=== PATIENT | male | born 1950 | race Caucasian/White ===

== ENCOUNTER 2018-03-28 23:18 | Emergency (ER) | payer MEDICARE, OTHER ==
[~2018-03-28] VITALS: Ht 175.3 cm; Wt 90.9 kg
[2018-03-28] MEDS ORDERED: ketorolac trometh inj. 60 MG/2 ML VIAL IM ONE (23:55)
[2018-03-28] MEDS ORDERED: diazepam 5mg tablet PO ONE (23:55)
[2018-03-28] MEDS ORDERED: epiNEPHrine inj 0.3 MG in BUPIVAcaine 0.5% inj/PF 29.7 ML SQ ONE (23:55)
[2018-03-29] MEDS ORDERED: EPINEPHRINE SQ ONE (00:15)
[2018-03-29] MEDS ORDERED: BUPIVACAINE 0.5% SQ ONE (00:15)
[2018-03-29] MEDS ORDERED: epiNEPHrine 1 mg/ml inj IM ONE (00:20)
[2018-03-29] MEDS ORDERED: BUPIVAcaine/PF 7.5mg/ml (0.75%) 10ml vial IJ ONE (00:20)
[2018-03-29 00:29] VITALS: BP 122/79
[2018-03-29] MEDS ORDERED: VAL5T PO (00:29)
[2018-03-29] MEDS ORDERED: IBUP-1984 PO (00:29)
[2018-03-29] MEDS ORDERED: ACET-3067 PO (00:29)
== END 2018-03-29 01:05 | disposition home or self-care (01) ==
LOC: ER 23:19
DX: S13.8XXA Sprain of joints and ligaments of other parts of neck, initial encounter (principal); M43.6 Torticollis; I25.10 Atherosclerotic heart disease of native coronary artery without angina pectoris; I10 Essential (primary) hypertension; J45.909 Unspecified asthma, uncomplicated; Z98.62 Peripheral vascular angioplasty status; Z79.899 Other long term (current) drug therapy; X50.1XXA Overexertion from prolonged static or awkward postures, initial encounter; Y93.89 Activity, other specified; Y92.89 Other specified places as the place of occurrence of the external cause; Y99.8 Other external cause status
CPT/HCPCS: 20552; 96372; 99284; J1885

== ENCOUNTER 2018-12-09 07:30 | Inpatient (IN) | payer MEDICARE, OTHER ==
[~2018-12-09] VITALS: Ht 175.3 cm; Wt 99.4 kg
[2018-12-28] MEDS ORDERED: LOSA1TAB39 PO (11:53)
[2018-12-28] MEDS ORDERED: GABA-532 PO (11:53)
[2018-12-28] MEDS ORDERED: ACET-2615 PO (11:53)
[2018-12-28] MEDS ORDERED: MELO-102 PO (11:53)
[2018-12-28 12:14] LABS: BASOPHILS # (AUTO) 0.1 X10'3 (0-0.2); BASOPHILS % (AUTO) 0.7 % (0-1); EOSINOPHILS # (AUTO) 0.2 X10'3 (0-0.9); EOSINOPHILS % (AUTO) 3.2 % (0-6); LYMPHOCYTES % (AUTO) 25.4 % (21-51); MEAN CORPUSCULAR HEMOGLOBIN 32.6 PG (27.0-31.0); MEAN CORPUSCULAR HGB CONC 33.7 g/dL (33.0-36.5); MEAN CORPUSCULAR VOLUME 96.6 FL (78-98); MEAN PLATELET VOLUME 7.1 FL (7.4-10.4); MONOCYTES # (AUTO) 0.6 X10'3 (0-0.9); MONOCYTES % (AUTO) 7.3 % (2-12); NEUTROPHILS # (AUTO) 4.9 X10'3 (1.8-7.7); NEUTROPHILS % (AUTO) 63.4 % (42-75); PRE OP HEMATOCRIT 48.3 % (42.0-52.0); PRE OP HEMOGLOBIN 16.3 g/dL (14.0-17.9); PRE OP PLATELET COUNT 230 X10'3 (140-440); RED CELL DISTRIBUTION WIDTH 13.1 % (11.5-14.5)
[2018-12-28 12:25] LABS: PRE OP PROTIME 9.7 SECONDS (9.0-12.0)
[2018-12-28 12:28] LABS: ALBUMIN 3.9 G/DL (3.4-5.0); ALKALINE PHOSPHATASE 77 IU/L (46-116); BLOOD UREA NITROGEN 18 MG/DL (7-18); BUN/CREATININE RATIO 21.7 (5.4-32.0); CALCIUM 9.2 MG/DL (8.5-10.1); CHLORIDE 102 MMOL/L (99-107); CREATININE 0.83 MG/DL (0.60-1.10); PRE OP ALT 51 U/L (30-65); PRE OP ANION GAP 9 (8-16); PRE OP AST 20 U/L (10-37); PRE OP BILIRUB, TOTAL 0.5 MG/DL (0.0-1.0); PRE OP GLUCOSE 96 MG/DL (70-104); PRE OP POTASSIUM 3.6 MMOL/L (3.4-5.1); PRE OP SODIUM 139 MMOL/L (135-145); TOTAL CARBON DIOXIDE 28.4 MMOL/L (24-32); TOTAL PROTEIN 7.9 G/DL (6.4-8.2); eGFR > 90 ML/MIN
[2019-01-03] VITALS (19 sets, daily range): BP systolic 108–189; BP diastolic 60–94
[2019-01-03] MEDS ORDERED: tranexamic acid inj. 1,000 MG in normal saline 100 ML IV ONE (05:30)
[2019-01-03] MEDS ORDERED: ringers solution, lacted 1,000 ML IV SCH ×2 (05:30→07:19)
[2019-01-03] MEDS ORDERED: cefazolin/dext.iso 2gm/100 ML IV ONE (05:30)
[2019-01-03] MEDS ORDERED: famotidine 20mg tablet PO ONE (05:30)
[2019-01-03] MEDS ORDERED: vancomycin inj 1,500 MG in normal saline 300ml IV soln IV ONE (05:30)
[2019-01-03] MEDS ORDERED: LIDOcaine 1% (10mg/ml) 2ml vial ONE (06:07)
[2019-01-03] MEDS ORDERED: ceFAZolin 1000mg inj ONE (06:48)
[2019-01-03] MEDS ORDERED: ROPIVAcaine 0.5% (5mg/ml) 30ml vial ONE (07:09)
[2019-01-03] MEDS ORDERED: tetracaine 1% (10mg/ml) pres. free inj. ONE (07:09)
[2019-01-03] MEDS ORDERED: morphine /PF 1mg/ml 10ml inj. ONE (07:13)
[2019-01-03] MEDS ORDERED: MIDAZolam 1mg/ml 10ml vial ONE (07:13)
[2019-01-03] MEDS ORDERED: fentaNYL/PF 50MCG/1 ML 2ML syringe ONE (07:14)
[2019-01-03] MEDS ORDERED: hydrALAZINE 20mg/ml inj. IV PRN (07:20)
[2019-01-03] MEDS ORDERED: diphenhydrAMINE 50 mg/ml inj IV PRN (07:20)
[2019-01-03] MEDS ORDERED: fentaNYL/PF 50MCG/1 ML 2ML syringe IV PRN ×2 (07:20)
[2019-01-03] MEDS ORDERED: ondansetron/PF 4mg/2ml inj IV PRN ×3 (07:20→13:00)
[2019-01-03] MEDS ORDERED: labetalol 20mg/4ml (5mg/ml) syringe IV PRN (07:20)
[2019-01-03] MEDS ORDERED: morphine 4 MG/ML inj SYRINge IV PRN ×2 (07:20)
[2019-01-03] MEDS ORDERED: diphenhydrAMINE 50 mg/ml inj ONE (07:53)
[2019-01-03] MEDS ORDERED: propofol inj 20 ML IV ONE ×3 (08:02)
--- NOTE | 2019-01-03 10:05 | NUR ---
Received from OR via bed, accompanied by Anesthesiologist. Report received. Initial physical assessment done and recorded. severre shivering noted medicated. Nasal O2 placed at 2l/min.
[2019-01-03] MEDS ORDERED: meperidine/PF 25mg/ml syringe ONE (10:15)
--- NOTE | 2019-01-03 11:30 | NUR ---
Discharge criteria met, report to receiving floor. Transferred to room in stable condition. Pt declines to wear oxygen stating he does not need it. Nasal cannula given to receiving RN, current saturation 95%.
[2019-01-03] MEDS ORDERED: HYDROcodone/acetaminophen 10/325mg tab PO PRN (13:00)
[2019-01-03] MEDS ORDERED: HYDROmorphone inj. 0.5 MG/0.5 ML DISP.SYRIN IV PRN (13:00)
[2019-01-03] MEDS ORDERED: diphenhydrAMINE 25mg capsule PO PRN (13:00)
[2019-01-03] MEDS ORDERED: bisacodyl 10mg suppository rectal RC PRN (13:00)
[2019-01-03] MEDS ORDERED: magnesium hydroxide 30ml (MOM) UD suspension PO PRN (13:00)
[2019-01-03] MEDS ORDERED: acetaminophen 325mg tablet PO PRN (13:00)
[2019-01-03] MEDS: diphenhydrAMINE 25mg capsule PO PRN ×2 (13:30→20:56)
[2019-01-03] MEDS: ceFAZolin 1GM/D5W- ADD-VANTAGE 50 ML IV SCH (16:46)
[2019-01-03] MEDS: potassium Cl 20mEq in NS 1,000 ML IV SCH (16:46)
[2019-01-03] MEDS: ketorolac tromethamine 15mg/ml inj. IV SCH ×2 (16:46→20:48)
[2019-01-03] MEDS: naproxen 500mg tablet PO SCH (16:47)
[2019-01-03] MEDS ORDERED: aspirin 325mg tablet PO SCH (17:30)
--- NOTE | 2019-01-03 18:17 | NUR ---
Patient in room ORTHO 4015. I have received report from BROCK CHOWDARY and had the opportunity to ask questions and assume patient care.
[2019-01-03] MEDS ORDERED: vancomycin/NS 1 GM ADD-VANTAGE 250 ML IV SCH (20:00)
[2019-01-03] MEDS: gabapentin 300mg capsule PO SCH (20:48)
[2019-01-03] MEDS: sennosides 8.6mg tablet PO SCH (20:48)
[2019-01-04] MEDS: ceFAZolin 1GM/D5W- ADD-VANTAGE 50 ML IV SCH (01:22)
[2019-01-04] MEDS: ketorolac tromethamine 15mg/ml inj. IV SCH ×2 (01:24→07:54)
[2019-01-04 01:48] VITALS: BP 117/59
[2019-01-04] MEDS: diphenhydrAMINE 25mg capsule PO PRN (02:49)
[2019-01-04] MEDS: HYDROcodone/acetaminophen 10/325mg tab PO PRN ×4 (03:11→23:06)
[2019-01-04 05:22] LABS: BASOPHILS % (AUTO) 0.3 % (0-1); EOSINOPHILS # (AUTO) 0.2 X10'3 (0-0.9); EOSINOPHILS % (AUTO) 2.9 % (0-6); HEMATOCRIT 35.7 % (42.0-52.0); HEMOGLOBIN 12.4 g/dl (14.0-17.9); LYMPHOCYTES # (AUTO) 1.3 X10'3 (1.1-4.8); LYMPHOCYTES % (AUTO) 15.8 % (21-51); MEAN CORPUSCULAR HEMOGLOBIN 33.2 PG (27.0-31.0); MEAN CORPUSCULAR HGB CONC 34.6 g/dL (33.0-36.5); MEAN CORPUSCULAR VOLUME 95.9 FL (78-98); MEAN PLATELET VOLUME 7.1 FL (7.4-10.4); MONOCYTES # (AUTO) 0.8 X10'3 (0-0.9); MONOCYTES % (AUTO) 9.2 % (2-12); NEUTROPHILS % (AUTO) 71.8 % (42-75); PLATELET COUNT 173 X10'3 (140-440); RED BLOOD COUNT 3.73 X10'6 (4.70-6.10); RED CELL DISTRIBUTION WIDTH 12.9 % (11.5-14.5); WHITE BLOOD COUNT 8.4 X10'3 (4.5-11.0)
[2019-01-04 05:41] LABS: ALANINE AMINOTRANSFERASE 33 U/L (12-78); ALKALINE PHOSPHATASE 51 IU/L (46-116); ANION GAP 5 (8-16); ASPARTATE AMINO TRANSFERASE 12 U/L (10-37); BILIRUBIN,TOTAL 0.6 MG/DL (0.1-1.0); BLOOD UREA NITROGEN 18 MG/DL (7-18); BUN/CREATININE RATIO 15.9 (5.4-32.0); CHLORIDE 102 MMOL/L (99-107); CREATININE 1.13 MG/DL (0.60-1.10); GLUCOSE 112 MG/DL (70-104); POTASSIUM 3.3 MMOL/L (3.5-5.1); SODIUM 137 MMOL/L (135-145); eGFR 65 ML/MIN
[2019-01-04 06:00] VITALS: BP 106/59
--- NOTE | 2019-01-04 06:15 | NUR ---
Patient in room ORTHO 4015. I have received report from Delmi GUTIÉRREZ and had the opportunity to ask questions and assume patient care.
--- NOTE | 2019-01-04 06:31 | NUR ---
Problems reprioritized. Patient report given, questions answered & plan of care reviewed with BROCK GIL.
[2019-01-04] MEDS ORDERED: potassium CL 10mEq/100ml bag 100 ML IV PRN (06:50)
[2019-01-04] MEDS ORDERED: magnesium 2GM in 50ml NS 50 ML IV PRN (06:50)
[2019-01-04] MEDS ORDERED: magnesium 4gm in 100ml NS 100 ML IV PRN (06:50)
[2019-01-04] MEDS ORDERED: potassium Cl 20 mEq SR tablet PO PRN (06:50)
[2019-01-04] MEDS ORDERED: magnesium Cl slow-release 64mg tablet PO PRN (06:50)
[2019-01-04] MEDS: naproxen 500mg tablet PO SCH ×2 (07:30→17:30)
[2019-01-04] MEDS: losartan 50mg tablet PO SCH (07:53)
[2019-01-04] MEDS: gabapentin 300mg capsule PO SCH ×2 (07:53→20:28)
[2019-01-04] MEDS: HYDROchlorothiazide 25mg tablet PO SCH (07:54)
[2019-01-04] MEDS: hydrALAZINE 25 MG tablet PO SCH (07:54)
[2019-01-04] MEDS ORDERED: non-formulary drug (Losartan/Hydrochlorothiazide (Losartan-Hctz 100-25 Mg Tab) 1 TAB) PO SCH (08:00)
[2019-01-04] MEDS ORDERED: non-formulary drug (Meloxicam 1 TAB) PO SCH (08:00)
[2019-01-04] MEDS: potassium Cl 20mEq in NS 1,000 ML IV SCH (08:16)
[2019-01-04] MEDS: potassium Cl 20 mEq SR tablet PO PRN ×2 (08:16→16:17)
[2019-01-04] MEDS: aspirin 81mg tab.chew PO SCH ×2 (08:16→20:28)
[2019-01-04 10:00] VITALS: BP 162/69
[2019-01-04 14:00] VITALS: BP 124/53
--- NOTE | 2019-01-04 15:27 | NUR ---
Joint replacement consult: Pt seen by MAXI for written/verbal high protein ed. RD reviewed high protein needs for wound healing, immune strength, high protein foods, and protein supplementation options. RD contact information provided in case of further questions. Pt agrees to chocolate ensure high protein TIDWM; dietary and MD notified. Addendum: 01/04/19 at [address] Amended: Links added.
[2019-01-04 17:00] VITALS: BP 106/64
[2019-01-04] MEDS ORDERED: lactose-reduced food (Ensure High Protein) 237ml bottle PO SCH (18:00)
--- NOTE | 2019-01-04 18:05 | NUR ---
Problems reprioritized. Patient report given, questions answered & plan of care reviewed with Rena Sherman RN.
--- NOTE | 2019-01-04 18:10 | NUR ---
Received report from Lianna GUTIÉRREZ, assumed care of patient with Alia GUTIÉRREZ.
[2019-01-04] MEDS: sennosides 8.6mg tablet PO SCH (20:28)
[2019-01-04 22:00] VITALS: BP 131/64
[2019-01-05] MEDS: HYDROcodone/acetaminophen 10/325mg tab PO PRN ×2 (04:21→08:24)
[2019-01-05 05:40] LABS: BASOPHILS % (AUTO) 0.4 % (0-1); EOSINOPHILS # (AUTO) 0.4 X10'3 (0-0.9); EOSINOPHILS % (AUTO) 4.9 % (0-6); HEMATOCRIT 34.5 % (42.0-52.0); HEMOGLOBIN 12.1 g/dl (14.0-17.9); LYMPHOCYTES # (AUTO) 1.3 X10'3 (1.1-4.8); LYMPHOCYTES % (AUTO) 17.8 % (21-51); MEAN CORPUSCULAR HEMOGLOBIN 33.7 PG (27.0-31.0); MEAN CORPUSCULAR HGB CONC 35.1 g/dL (33.0-36.5); MEAN PLATELET VOLUME 7.1 FL (7.4-10.4); MONOCYTES # (AUTO) 0.6 X10'3 (0-0.9); MONOCYTES % (AUTO) 8.3 % (2-12); NEUTROPHILS % (AUTO) 68.6 % (42-75); PLATELET COUNT 162 X10'3 (140-440); RED CELL DISTRIBUTION WIDTH 12.9 % (11.5-14.5); WHITE BLOOD COUNT 7.3 X10'3 (4.5-11.0)
--- NOTE | 2019-01-05 05:40 | NUR ---
In agreement for all charting and medication administration reviewed for this shift by Alia GUTIÉRREZ.
[2019-01-05 06:00] VITALS: BP 122/91
--- NOTE | 2019-01-05 06:00 | NUR ---
Patient in room ORTHO 4015. I have received report from OLI GUTIÉRREZ AND QUYNH RN and had the opportunity to ask questions and assume patient care.
[2019-01-05 06:03] LABS: ALANINE AMINOTRANSFERASE 28 U/L (12-78); ALBUMIN/GLOBULIN RATIO 0.8 (1.1-1.5); ALKALINE PHOSPHATASE 54 IU/L (46-116); ANION GAP 8 (8-16); ASPARTATE AMINO TRANSFERASE 18 U/L (10-37); BILIRUBIN,TOTAL 0.7 MG/DL (0.1-1.0); BLOOD UREA NITROGEN 14 MG/DL (7-18); BUN/CREATININE RATIO 16.9 (5.4-32.0); CALCIUM 8.6 MG/DL (8.5-10.1); CHLORIDE 103 MMOL/L (99-107); CREATININE 0.83 MG/DL (0.60-1.10); GLUCOSE 109 MG/DL (70-104); MAGNESIUM 1.9 MG/DL (1.5-2.4); POTASSIUM 3.5 MMOL/L (3.5-5.1); SODIUM 139 MMOL/L (135-145); TOTAL CARBON DIOXIDE 28.4 MMOL/L (24-32); TOTAL PROTEIN 6.6 G/DL (6.4-8.2); eGFR > 90 ML/MIN
--- NOTE | 2019-01-05 06:14 | NUR ---
Gave report to BROCK Soto
[2019-01-05] MEDS ORDERED: HYDR-3972 PO (06:58)
[2019-01-05] MEDS ORDERED: WALKERFR (06:59)
[2019-01-05] MEDS: naproxen 500mg tablet PO SCH (08:23)
[2019-01-05] MEDS: gabapentin 300mg capsule PO SCH (08:23)
[2019-01-05] MEDS: aspirin 81mg tab.chew PO SCH (08:23)
[2019-01-05] MEDS: HYDROchlorothiazide 25mg tablet PO SCH (08:24)
[2019-01-05] MEDS: losartan 50mg tablet PO SCH (08:24)
[2019-01-05] MEDS: hydrALAZINE 25 MG tablet PO SCH (08:24)
[2019-01-05 10:00] VITALS: BP 119/65
--- NOTE | 2019-01-05 10:55 | NUR ---
PATIENT DISCHARGED SAFELY WITH WITH ALL BELONGINGS IN POSSESSION. CIARA DELIVERED HOME MEDS. PATIENT VERBALIZES DISCHARGE INSTRUCTIONS.
== END 2019-01-05 10:55 | disposition home or self-care (01) | DRG 470 ==
LOC: PAS IN 01-03 05:39 → EDSTATUS 01-03 07:30 → ORTHO 4S 01-03 11:15
PROVIDERS: ADMIT Orthopaedic Surgery; ATTEND Orthopaedic Surgery
PROC: 3E0T3BZ Introduction of Anesthetic Agent into Peripheral Nerves and Plexi, Percutaneous Approach (ICD-10-PCS; 2019-01-03)
PROC: 0SRD0J9 Replacement of Left Knee Joint with Synthetic Substitute, Cemented, Open Approach (ICD-10-PCS; principal; 2019-01-03 07:24)
DX: M17.12 Unilateral primary osteoarthritis, left knee (principal); D62 Acute posthemorrhagic anemia; I10 Essential (primary) hypertension; E86.0 Dehydration; J45.909 Unspecified asthma, uncomplicated; I25.10 Atherosclerotic heart disease of native coronary artery without angina pectoris; Z79.899 Other long term (current) drug therapy; Z95.5 Presence of coronary angioplasty implant and graft
CPT/HCPCS: 36415; 80053; 82948; 83735; 85025; 85610; 85730; 86885; 86900; 86901; 86920; 87081; 97110; 97116; 97162; 97530; A4215; A6455; A7000; C1713; C1758; C1776; G0378; J0690; J1200; J1885; J2001; J2175; J2250; J2270; J2704; J2795; J3010; J3370; J3480; J7120; Q0163

== ENCOUNTER 2019-04-29 12:41 | Emergency (ER) | payer MEDICARE ==
[~2019-04-29] VITALS: Ht 175.3 cm; Wt 100.0 kg
[~2019-04-29 12:41] MED LIST: GABA-532 PO; HYDR-3972 PO; LOSA1TAB39 PO; MELO-102 PO; WALKERFR
[2019-04-29] MEDS ORDERED: normal saline 1000ML IV soln IVB ONE (13:40)
[2019-04-29] MEDS ORDERED: morphine 4 MG/ML inj SYRINge IV ONE ×2 (13:40→14:40)
--- NOTE | 2019-04-29 13:49 | NUR ---
VERBAL FROM [facility]
[2019-04-29 14:19] LABS: BASOPHILS % (AUTO) 0.5 % (0-1); EOSINOPHILS # (AUTO) 0.1 X10'3 (0-0.9); EOSINOPHILS % (AUTO) 1.5 % (0-6); HEMOGLOBIN 14.9 g/dl (14.0-17.9); LYMPHOCYTES # (AUTO) 1.2 X10'3 (1.1-4.8); LYMPHOCYTES % (AUTO) 12.4 % (21-51); MEAN CORPUSCULAR HEMOGLOBIN 32.8 PG (27.0-31.0); MEAN CORPUSCULAR HGB CONC 35.3 g/dL (33.0-36.5); MEAN CORPUSCULAR VOLUME 92.7 FL (78-98); MEAN PLATELET VOLUME 6.9 FL (7.4-10.4); MONOCYTES # (AUTO) 0.5 X10'3 (0-0.9); MONOCYTES % (AUTO) 5.6 % (2-12); NEUTROPHILS # (AUTO) 7.6 X10'3 (1.8-7.7); PLATELET COUNT 231 X10'3 (140-440); RED BLOOD COUNT 4.54 X10'6 (4.70-6.10); RED CELL DISTRIBUTION WIDTH 13.7 % (11.5-14.5); WHITE BLOOD COUNT 9.5 X10'3 (4.5-11.0)
[2019-04-29 14:35] LABS: ALANINE AMINOTRANSFERASE 27 U/L (12-78); ALBUMIN 3.4 G/DL (3.4-5.0); ALBUMIN/GLOBULIN RATIO 0.7 (1.1-1.5); ALKALINE PHOSPHATASE 87 IU/L (46-116); ANION GAP 7 (8-16); ASPARTATE AMINO TRANSFERASE 21 U/L (10-37); BILIRUBIN,TOTAL 0.4 MG/DL (0.1-1.0); BLOOD UREA NITROGEN 23 MG/DL (7-18); CALCIUM 9.5 MG/DL (8.5-10.1); CHLORIDE 101 MMOL/L (99-107); CREATININE 0.96 MG/DL (0.60-1.10); GLUCOSE 115 MG/DL (70-104); SODIUM 138 MMOL/L (135-145); TOTAL CARBON DIOXIDE 29.7 MMOL/L (24-32); TOTAL PROTEIN 8.2 G/DL (6.4-8.2); eGFR 78 ML/MIN
[2019-04-29] MEDS ORDERED: CIPR-230 PO (14:35)
[2019-04-29] MEDS ORDERED: L. R1CAP4 PO (14:35)
[2019-04-29] MEDS ORDERED: METR-159 PO (14:35)
[2019-04-29] MEDS ORDERED: potassium Cl 20 mEq SR tablet PO STA (14:39)
[2019-04-29] MEDS ORDERED: HYDR-3965 PO (14:40)
[2019-04-29 14:41] LABS: CLARITY,URINE CLEAR (Clear); COLOR,URINE YELLOW (Yellow); GLUCOSE, URINE NEGATIVE (Neg); KETONES,URINE NEGATIVE (Neg); LEUKOCYTE ESTERASE ,URINE NEGATIVE (Neg); NITRITES, URINE NEGATIVE (Neg); OCCULT BLOOD,URINE NEGATIVE (Neg); PROTEIN,URINE NEGATIVE (Neg); UROBILINOGEN,URINE 0.2 E.U/dL (0.2-1.0)
[2019-04-29 14:42] LABS: UA COLLECTION TYPE CLN CATCH MIDSTREAM
[2019-04-29] MEDS ORDERED: metroNIDAZOLE 500mg tablet PO ONE (15:35)
[2019-04-29] MEDS ORDERED: ciprofloxacin 250mg tablet PO ONE (15:35)
[2019-04-29 16:23] VITALS: BP 153/78
== END 2019-04-29 16:24 | disposition home or self-care (01) ==
LOC: ER 12:41
DX: K57.32 Diverticulitis of large intestine without perforation or abscess without bleeding (principal); E87.6 Hypokalemia; R19.7 Diarrhea, unspecified; I25.10 Atherosclerotic heart disease of native coronary artery without angina pectoris; I10 Essential (primary) hypertension; J45.909 Unspecified asthma, uncomplicated; Z95.5 Presence of coronary angioplasty implant and graft; Z98.890 Other specified postprocedural states; Z79.899 Other long term (current) drug therapy; Z87.442 Personal history of urinary calculi
CPT/HCPCS: 36415; 74176; 80053; 81003; 85025; 96361; 96374; 96376; 99284; J2270; J7030; J3490